=== PATIENT | female | born 1980 | race Caucasian/White ===

== ENCOUNTER → 2017-10-10 12:52 | Outpatient (CLI) | payer MEDICAID, SELFPAY | PROVIDERS: Visit Provider Orthopaedic Surgery | DX: M25.561 Pain in right knee (principal) | CPT/HCPCS: 73564 ==

== ENCOUNTER → 2017-12-19 09:28 | Outpatient (CLI) | payer MEDICAID, SELFPAY ==
--- NOTE | 2017-12-19 09:30 | MRI_ITS ---
STUDY: MRI RIGHT KNEE REASON FOR EXAM: Right knee pain and popping. TECHNIQUE: Standardized fat and water weighted pulse sequences were obtained in all 3 orthogonal planes. COMPARISON: Radiographs 10/10/2017. FINDINGS: Normal medial meniscus. There is low to intermediate grade chondromalacia of the medial femorotibial compartment (T2 sagittal image 8). There is very mild subchondral bone edema of the medial tibial plateau (T2 coronal images 17, 18), a stress phenomenon. Normal medial collateral ligamentous complex (MCL). Normal distal semimembranosus, gracilis and semitendinosus tendons. Normal lateral meniscus. Normal hyaline cartilage of the lateral femorotibial compartment. There is very mild bone edema of the lateral femoral condyle (T2 coronal image 16). Normal proximal tibiofibular articulation. Normal lateral collateral (fibular) ligament. Normal popliteus tendon. Normal biceps femoris tendon. Normal anterior cruciate ligament (ACL). Normal posterior cruciate ligament (PCL). Normal congruent patellofemoral articulation. There is intermediate grade chondromalacia patellae (T2 sagittal image 15). Normal medial and lateral patellar retinaculum. Normal visualized quadriceps tendon. Normal patellar tendon. There is mild edema in Hoffa's fat pad inferior to the lateral aspect of the patellofemoral articulation (T2 coronal image 27). There is a small joint effusion. There is a thin medial patellar plica. There is a small popliteal cyst with mild extravasation of fluid (T2 sagittal images 5-7). The otherwise visualized osseous structures are unremarkable. 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 Very mild bone edema of the medial tibial plateau and lateral femoral condyle, a stress phenomenon. Mild edema in Hoffa's fat pad inferior to the lateral aspect patellofemoral articulation, a possible MRI manifestation of patellofemoral friction syndrome. Small joint effusion. Small popliteal cyst with mild extravasation of fluid. Electronically Signed: Giovanni Aguirre MD at 12:01 EST Tel , Service support ,
== END ==
PROVIDERS: Referring Provider Orthopaedic Surgery; Visit Provider Orthopaedic Surgery
DX: M22.41 Chondromalacia patellae, right knee (principal)
CPT/HCPCS: 73721